=== PATIENT | female | born 1950 | race Caucasian/White ===

== ENCOUNTER 2018-12-20 08:12 | Emergency (ER) | payer OTHER, BC ==
[2018-12-20 08:19] VITALS: BP 147/83; PULSE 68; TEMP 98.8; BMI 29.2
--- NOTE | 2018-12-20 09:00 | PDOC ---
History of Present Illness - General Chief Complaint: Urinary Problem Stated Complaint: UTI SYMTOMS Time Seen by Provider: 12/20/18 08:32 - History of Present Illness Initial Comments: 12/20/18 09:01 68y/o F hx of CVA, HTN, HLD presents to the ED with 2 days of suprapubic abdominal pain, dysuria and hematuria. She describes the pain as constant steady suprapubic non- radiating pain that is 9/10 in severity. She drank some cranberry juice and water yesterday and experienced some temporary relief of her symptoms.She has had one episode of hematuria and has not taken any medications at home for pain relief. Endorses urgency, but no burning with urination.She denies any fevers, chills, nausea, vomiting, or flank pain. 12/20/18 12:35 Past History - Past Medical History Allergies/Adverse Reactions: Allergies Allergy/AdvReac Type Severity Reaction Status Date / Time No Known Allergies Allergy Verified 12/20/18 08:15 Home Medications: Ambulatory Orders Aspirin [ASA -] 81 mg PO DAILY 11/27/13 Cyclobenzaprine HCl [Flexeril -] 10 mg PO TID PRN #21 tablet 11/27/13 Metoprolol Succinate [Toprol XL -] 100 mg PO DAILY 11/27/13 Naproxen [Naprosyn -] 500 mg PO BID PRN #14 tablet 11/27/13 Pravastatin Sodium [Pravachol -] 40 mg PO DAILY 11/27/13 Cephalexin [Keflex] 500 mg PO BID 7 Days #14 capsule 12/20/18 CVA: No COPD: No CHF: No - Immunization History Immunization Up to Date: Yes - Suicide/Smoking/Psychosocial Hx Smoking History: Never smoked Information on smoking cessation initiated: No Hx Alcohol Use: No Drug/Substance Use Hx: No Review of Systems - Review of Systems Constitutional: No: Chills, Fever HEENTM: No: Blurred Vision Respiratory: No: Cough, Shortness of Breath Cardiac (ROS): No: Chest Pain ABD/GI: No: Diarrhea, Nausea : Yes: Symptoms Reported, Burning Musculoskeletal: Yes: Muscle Pain. No: Back Pain Integumentary: No: Bruising, Change in Color Neurological: No: Headache *Physical Exam - Vital Signs Last Vital Signs Temp Pulse Resp BP Pulse Ox 98.8 F 68 17 147/83 100 12/20/18 08:16 12/20/18 08:16 12/20/18 08:16 12/20/18 08:16 12/20/18 08:16 - Physical Exam General Appearance: Yes: Nourished, Appropriately Dressed. No: Apparent Distress HEENT: positive: Normal Voice. negative: Scleral Icterus (R), Scleral Icterus ( L) Neck: positive: Trachea midline. negative: Tender Respiratory/Chest: positive: Lungs Clear, Normal Breath Sounds. negative: Chest Tender, Respiratory Distress Cardiovascular: positive: Regular Rhythm, Regular Rate, S1, S2. negative: JVD Gastrointestinal/Abdominal: positive: Normal Bowel Sounds, Soft, Protuberent. negative: Tender, Distended, Guarding, Rebound, Tenderness Musculoskeletal: positive: Normal Inspection. negative: CVA Tenderness Extremity: positive: Normal Capillary Refill, Normal Inspection, Normal Range of Motion, Other (1+ edema of bilateral lower extremities) Integumentary: positive: Normal Color, Dry, Warm. negative: Cyanotic Neurologic: positive: Fully Oriented, Alert, Normal Mood/Affect, Normal Response ED Treatment Course - LABORATORY CBC & Chemistry Diagram: 12/20/18 09:15 12/20/18 09:15 Medical Decision Making - Medical Decision Making 12/20/18 10:15 68y/o F hx of CVA, HTN, HLD presents to the ED with 2 days of suprapubic abdominal pain, dysuria and hematuria. cbc, cmp, ua, urine culture Meds; 975 mg PO for pain 12/20/18 12:36 Patients pain improved with tylenol, cbc and cmp unremarkable UA remarkable for protein 3+, leukocyte esterase 3+ and 3+ blood. Pt sent home with prescription for oral antibiotics (Cephalexin 500mg po bid for 7 days) UA equally remarkable for proteinuria 3+. pt counseled on the importance of following up on this result with her primary care doctor. *DC/Admit/Observation/Transfer Diagnosis at time of Disposition: UTI (urinary tract infection) Qualifiers: Urinary tract infection type: site unspecified Hematuria presence: with hematuria Qualified Code(s): N39.0 - Urinary tract infection, site not specified - Discharge Dispostion Disposition: HOME Condition at time of disposition: Stable - Prescriptions Prescriptions: Cephalexin [Keflex] 500 mg PO BID 7 Days #14 capsule - Referrals Referrals: Zay Gonzales MD [Primary Care Provider] - - Patient Instructions Printed Discharge Instructions: Urinary Tract Infection Additional Instructions: UTI Discharge: you were prescribed antibiotics, take them exactly as your caregiver instructs you. Finish the medication even if you feel better! Drink enough water and fluids to keep your urine clear or pale yellow. Avoid caffeine , tea, and carbonated beverages - these can irritate your bladder. Empty your bladder often. Avoid holding urine for long periods of time. Empty your bladder before and after sexual intercourse. After a bowel movement, women should cleanse from front to back. Use each tissue only once. Follow up with your primary care provider within the next week. SEEK MEDICAL CARE IF: You have back pain. You develop a fever. Your symptoms do not begin to resolve within 3 days. SEEK IMMEDIATE MEDICAL CARE IF: You have severe back pain or lower abdominal pain. You develop chills. You have nausea or vomiting. You have continued burning or discomfort with urination. - Post Discharge Activity
[2018-12-20 09:43] LABS: BASO % 0.4 % (0-2.0); EOS % 1.4 % (0-4.5); HEMATOCRIT 35.9 % (32.4-45.2); HEMOGLOBIN 12.1 GM/dL (10.7-15.3); LYMPH % 16.4 % (8-40); MCHC 33.7 g/dl (32.0-36.0); MEAN CELL VOLUME 89.1 fl (80-96); MONO % 6.2 % (3.8-10.2); NEUT % 75.6 % (42.8-82.8); PLATELET COUNT 227 K/MM3 (134-434); RBC 4.03 M/mm3 (3.60-5.2); RDW 13.6 % (11.6-15.6); WHITE BLOOD COUNT 10.1 K/mm3 (4.0-10.0)
[2018-12-20] MEDS ORDERED: ACETAMINOPHEN 500 MG TABLET (FP) PO ONE (09:50)
[2018-12-20 09:59] LABS: ALBUMIN 3.6 g/dl (3.4-5.0); BILIRUBIN,TOTAL 0.5 mg/dL (0.2-1); BLOOD UREA NITROGEN 27.3 mg/dL (7-18); CALCIUM 9.5 mg/dL (8.5-10.1); POTASSIUM 3.9 mmol/L (3.5-5.1); TOT PROT 7.4 g/dl (6.4-8.2)
--- NOTE | 2018-12-20 10:49 | PDOC ---
Attending Attestation - Resident Resident Name: Dewey Garcia - ED Attending Attestation I have performed the following: I have examined & evaluated the patient, The case was reviewed & discussed with the resident, I agree w/resident's findings & plan, Exceptions are as noted - HPI HPI: 12/20/18 10:49 68 F with h/o HTN, HLD, CVA presenting to ED with 2 days of suprapubic pain. Pt endorses burning with urination and an episode of hematuria yesterday. Denies flank pain. Denies F/C. Denies N/V/D. - Physicial Exam PE: 12/20/18 10:50 "GENERAL: Awake, alert, and fully oriented, in no acute distress. HEAD: No signs of trauma EYES: PERRLA, EOMI, sclera anicteric, conjunctiva clear ENT: Auricles normal inspection, hearing grossly normal, nares patent, oropharynx clear without exudates. Moist mucosa NECK: Nontender, no stepoffs, Normal ROM, supple, no lymphadenopathy, JVD, or masses LUNGS: Breath sounds equal, clear to auscultation bilaterally. No wheezes, and no crackles HEART: Regular rate and rhythm, normal S1 and S2, no murmurs, rubs or gallops ABDOMEN: + suprapubic TTP, normoactive bowel sounds. No guarding, no rebound. No masses EXTREMITIES: Normal range of motion, no edema. No clubbing or cyanosis. No cords, erythema, or tenderness NEUROLOGICAL: Cranial nerves II through XII intact. 5/5 strength and sensation in all extremities, Normal speech, normal gait, normal cerebellar function SKIN: Warm, Dry, normal turgor, no rashes or lesions noted. - Medical Decision Making 12/20/18 10:50 68 F with suprapubic pain and dysuria. Will evaluate for UTI. - Labs, UA - Tylenol 12/20/18 12:16 UA consistent with UTI. Will tx with keflex Labs otherwise wnl Pt is well appearing, with normal vitals. Clinically stable for DC at this time. I discussed the physical exam findings, ancillary test results and final diagnoses with the patient. I answered all of the patient's questions. The patient was satisfied with the care received and felt comfortable with the discharge plan and treatment plan. The patient agrees to follow up with the primary care physician within 24-72 hours.
[2018-12-20 12:00] LABS: URINE COLOR YELLOW
[2018-12-20 12:01] LABS: PH,URINE 7.5 (5.0-8.0); URINE APPEARANCE CLOUDY; URINE BILIRUBIN NEGATIVE (NEGATIVE); URINE GLUCOSE (UA) NEGATIVE (NEGATIVE); URINE KETONE NEGATIVE (NEGATIVE); URINE LEUK ESTERASE 3+ (NEGATIVE); URINE NITRITE NEGATIVE (NEGATIVE); URINE PROTEIN 3+ (NEGATIVE); URINE UROBILINOGEN 0.2 mg/dL (0.2-1.0)
[2018-12-20 12:23] LABS: EPI CELLS 3+ /HPF (0-5/HPF); URINE BACTERIA 1+ /hpf (NEGATIVE); URINE RBC 30-40 /hpf (0-4); URINE WBC 40-50 /hpf (0-5)
== END 2018-12-20 12:30 | disposition home or self-care (01) ==
LOC: JER 08:12
DX: N39.0 Urinary tract infection, site not specified (principal); B96.89 Other specified bacterial agents as the cause of diseases classified elsewhere; N02.9 Recurrent and persistent hematuria with unspecified morphologic changes; I10 Essential (primary) hypertension; E78.5 Hyperlipidemia, unspecified; Z86.73 Personal history of transient ischemic attack (TIA), and cerebral infarction without residual deficits
CPT/HCPCS: 36415; 80053; 81003; 85025; 87086; 87186; 99282-25

== ENCOUNTER → 2020-03-11 | Day surgery (SDC) | payer OTHER, BC ==
[2020-03-09 15:14] VITALS: BMI 27.9
[~2020-03-11] MED LIST: DEXAMETHASONE SOD PHOSPHATE 4 MG/1 ML VIAL ONE; GLYCOPYRROLATE 0.2 MG/1 ML VIAL ONE; LACTATED RINGERS SOLUTION 1,000 ML IV SCH; LIDOCAINE HCL/PF 2% SDV 5ML VIAL ONE; MIDAZOLAM HCL 2 MG/2 ML SINGLE DOSE VIAL ONE; ONDANSETRON 4 MG/2 ML VIAL IVPUSH PRN; PROMETHAZINE HCL 25 MG/1 ML VIAL IVPB PRN; PROPOFOL 20 ML ONE; SODIUM CHLORIDE 0.9% P/F 10 ML VIAL IJ ONE; ceFAZolin SODIUM 1 GM VIAL IVPB ONE; ceFAZolin SODIUM 1 GM VIAL ONE
[2020-03-11 15:13] VITALS: BP 108/67; PULSE 63; TEMP 96.8
== END | disposition home or self-care (01) ==
LOC: JASU-SURG 05:43
PROVIDERS: ATTEND Urology
PROC: 0TBB8ZX Excision of Bladder, Via Natural or Artificial Opening Endoscopic, Diagnostic (ICD-10-PCS; principal; 2020-03-11 11:00)
DX: C67.3 Malignant neoplasm of anterior wall of bladder (principal); I10 Essential (primary) hypertension; E11.9 Type 2 diabetes mellitus without complications; E78.5 Hyperlipidemia, unspecified; Z79.84 Long term (current) use of oral hypoglycemic drugs
CPT/HCPCS: 82962; 87086; 88108; 88307-TC; 94760

== ENCOUNTER 2020-07-10 04:48 | Day surgery (SDC) | payer OTHER, BC ==
[2020-07-09 10:00] VITALS: BMI 29.2
[2020-07-10] MEDS ORDERED: ceFAZolin SODIUM 1 GM VIAL IVPB ONE (14:49)
[2020-07-10] MEDS ORDERED: oxyCODONE HCL 5 MG TABLET PO PRN ×2 (16:00)
[2020-07-10] MEDS ORDERED: ONDANSETRON 4 MG/2 ML VIAL IVPUSH PRN (16:00)
[2020-07-10] MEDS ORDERED: LACTATED RINGERS SOLUTION 1,000 ML IV SCH (16:00)
[2020-07-10 16:48] VITALS: TEMP 97.8
[2020-07-10 18:09] VITALS: BP 114/57; PULSE 63
== END 2020-07-10 17:55 | disposition home or self-care (01) ==
LOC: JASU-SURG 04:48
PROVIDERS: ATTEND Urology
PROC: 0T5B8ZZ Destruction of Bladder, Via Natural or Artificial Opening Endoscopic (ICD-10-PCS; principal; 2020-07-10 13:00)
DX: C67.9 Malignant neoplasm of bladder, unspecified (principal); I10 Essential (primary) hypertension; E11.9 Type 2 diabetes mellitus without complications
CPT/HCPCS: 82962; 87086; 88108; 88307-TC

== ENCOUNTER 2021-01-10 09:10 | Observation (INO) | payer OTHER, BC ==
[2021-01-10] MEDS ORDERED: ACETAMINOPHEN 1000 MG/100 ML VIAL IVPB ONE (09:28)
[2021-01-10] MEDS ORDERED: SODIUM CHLORIDE 500 ML IV STA (09:28)
[2021-01-10] MEDS ORDERED: CEFTRIAXONE 1 GM in DEXTROSE 5%-WATER - 50 ML IVPB ONE (09:42)
[2021-01-10 10:55] LABS: EPI CELLS 32 /uL (0-25.1); HYALINE CASTS 6 /uL (0-3.1); PH,URINE 5.5 (5.0-8.0); URINE APPEARANCE CLOUDY; URINE BACTERIA >9,000 /uL (0-1359); URINE BILIRUBIN NEGATIVE (NEGATIVE); URINE COLOR DK YELLOW; URINE GLUCOSE (UA) NEGATIVE (NEGATIVE); URINE KETONE 1+ (NEGATIVE); URINE LEUK ESTERASE 2+ (NEGATIVE); URINE NITRITE POSITIVE (NEGATIVE); URINE PROTEIN 2+ (NEGATIVE); URINE RBC 22 /uL (0-23.9); URINE WBC 610 /uL (0-25.8)
[2021-01-10] MEDS ORDERED: CEFTRIAXONE 1 GM/50 ML BAG ONE (10:59)
[2021-01-10] MEDS ORDERED: ACETAMINOPHEN INJECTION 100 ML IVPB ONE (10:59)
[2021-01-10 11:24] LABS: BASO % 0.4 % (0-2.0); HEMATOCRIT 35.5 % (32.4-45.2); HEMOGLOBIN 12.2 GM/dL (10.7-15.3); LYMPH % 3.4 % (8-40); MCH 30.2 pg (25.7-33.7); MCHC 34.5 g/dl (32.0-36.0); MEAN CELL VOLUME 87.6 fl (80-96); MEAN PLT VOLUME 8.5 fl (7.5-11.1); MONO % 6.7 % (3.8-10.2); NEUT % 89.5 % (42.8-82.8); PLATELET COUNT 193 10^3/uL (134-434); RBC 4.06 M/mm3 (3.60-5.2); RDW 13.2 % (11.6-15.6); WHITE BLOOD COUNT 16.8 K/mm3 (4.0-10.0)
[2021-01-10 11:54] LABS: CALCIUM 8.3 mg/dL (8.5-10.1)
[2021-01-10 11:55] LABS: ALBUMIN 3.1 g/dl (3.4-5.0); BLOOD UREA NITROGEN 21.7 mg/dL (7-18)
[2021-01-10 11:58] LABS: CREATININE 1.1 mg/dL (0.55-1.3)
[2021-01-10 11:59] LABS: BILIRUBIN,TOTAL 1.2 mg/dL (0.2-1); TOT PROT 7.2 g/dl (6.4-8.2)
[2021-01-10 12:00] LABS: ANISOCYTOSIS 0; MACROCYTOSIS 0; PLATELET ESTIMATE NORMAL
[2021-01-10] MEDS ORDERED: ONDANSETRON 4 MG/2 ML VIAL IVPUSH PRN (15:18)
[2021-01-10 16:51] VITALS: BMI 27.4
[2021-01-10] MEDS: INSULIN SLIDING SCALE (NOVOLOG) 1 VIAL SQ SCH ×2 (17:30→21:19)
[2021-01-10] MEDS: SODIUM CHLORIDE 1,000 ML IV SCH (17:39)
[2021-01-10] MEDS: ACETAMINOPHEN 325 MG TABLET (FP) PO PRN (21:23)
[2021-01-11] MEDS: SODIUM CHLORIDE 1,000 ML IV SCH ×2 (02:09→18:02)
[2021-01-11] MEDS: ACETAMINOPHEN 325 MG TABLET (FP) PO PRN ×2 (05:48→19:00)
[2021-01-11] MEDS: INSULIN SLIDING SCALE (NOVOLOG) 1 VIAL SQ SCH ×4 (06:02→21:32)
[2021-01-11 08:18] LABS: HEMATOCRIT 31.8 % (32.4-45.2); HEMOGLOBIN 10.8 GM/dL (10.7-15.3); MCH 29.9 pg (25.7-33.7); MCHC 33.8 g/dl (32.0-36.0); MEAN CELL VOLUME 88.4 fl (80-96); MEAN PLT VOLUME 9.2 fl (7.5-11.1); PLATELET COUNT 149 10^3/uL (134-434); RDW 13.3 % (11.6-15.6); WHITE BLOOD COUNT 11.2 K/mm3 (4.0-10.0)
[2021-01-11 08:34] LABS: CALCIUM 7.5 mg/dL (8.5-10.1)
[2021-01-11 08:35] LABS: BLOOD UREA NITROGEN 22.9 mg/dL (7-18)
[2021-01-11 08:38] LABS: CREATININE 1.1 mg/dL (0.55-1.3)
[2021-01-11] MEDS ORDERED: CEFTRIAXONE 1 GM in DEXTROSE 5%-WATER - 50 ML IVPB SCH (10:00)
[2021-01-11] MEDS ORDERED: CEFTRIAXONE 2 GM in DEXTROSE 5%-WATER 100 ML IVPB SCH (10:00)
[2021-01-11] MEDS ORDERED: PATIENT'S OWN MEDICATION (NON-FORMULARY) (C,E,Zinc,Copper 11/Omega3s/Lut [Ocuvite Adult 50 PO SCH (10:00)
[2021-01-11] MEDS ORDERED: POTASSIUM CHLORIDE ORAL LIQUID 20 MEQ/15 ML PO ONE (10:30)
[2021-01-11] MEDS ORDERED: DEXTROSE 5%-WATER 100 ML IVPB ONE (10:49)
[2021-01-11] MEDS: LISINOPRIL 20 MG TABLET PO SCH (10:52)
[2021-01-11] MEDS: MULTIVITAMINS (DAILY MVI) TABLET (FP) PO SCH (10:52)
[2021-01-11] MEDS: amLODIPine BESYLATE 5 MG TABLET (FP) PO SCH (10:53)
[2021-01-11] MEDS: CEFTRIAXONE 2 GM in DEXTROSE 5%-WATER 100 ML IVPB SCH (10:53)
[2021-01-11] MEDS: ASPIRIN 81 MG CHEWABLE TABLETS PO SCH (10:53)
[2021-01-11] MEDS ORDERED: INSULIN (NOVOLOG) ASPART 100 UNITS/ML 10ML VIAL ONE ×2 (17:38→20:44)
[2021-01-12] MEDS: ACETAMINOPHEN 325 MG TABLET (FP) PO PRN (05:55)
[2021-01-12] MEDS: INSULIN SLIDING SCALE (NOVOLOG) 1 VIAL SQ SCH ×4 (06:08→22:40)
[2021-01-12 08:09] LABS: BASO % 0.4 % (0-2.0); HEMATOCRIT 30.7 % (32.4-45.2); HEMOGLOBIN 10.4 GM/dL (10.7-15.3); LYMPH % 12.5 % (8-40); MCHC 33.8 g/dl (32.0-36.0); MEAN CELL VOLUME 88.7 fl (80-96); MEAN PLT VOLUME 8.8 fl (7.5-11.1); MONO % 9.5 % (3.8-10.2); NEUT % 76.6 % (42.8-82.8); PLATELET COUNT 165 10^3/uL (134-434); RBC 3.46 M/mm3 (3.60-5.2); RDW 13.9 % (11.6-15.6); WHITE BLOOD COUNT 7.3 K/mm3 (4.0-10.0)
[2021-01-12 08:32] LABS: CALCIUM 7.7 mg/dL (8.5-10.1)
[2021-01-12 08:33] LABS: BLOOD UREA NITROGEN 15.5 mg/dL (7-18)
[2021-01-12 08:36] LABS: CREATININE 0.8 mg/dL (0.55-1.3)
[2021-01-12] MEDS ORDERED: DEXTROSE 5%-WATER 100 ML IVPB ONE (09:54)
[2021-01-12] MEDS: CEFTRIAXONE 2 GM in DEXTROSE 5%-WATER 100 ML IVPB SCH (09:56)
[2021-01-12] MEDS: MULTIVITAMINS (DAILY MVI) TABLET (FP) PO SCH (09:57)
[2021-01-12] MEDS: amLODIPine BESYLATE 5 MG TABLET (FP) PO SCH (09:57)
[2021-01-12] MEDS: LISINOPRIL 20 MG TABLET PO SCH (09:57)
[2021-01-12] MEDS: ASPIRIN 81 MG CHEWABLE TABLETS PO SCH (09:57)
[2021-01-12] MEDS ORDERED: POTASSIUM CHLORIDE ORAL LIQUID 20 MEQ/15 ML PO ONE (11:00)
[2021-01-12] MEDS: SODIUM CHLORIDE 1,000 ML IV SCH (11:06)
[2021-01-13] MEDS: ACETAMINOPHEN 325 MG TABLET (FP) PO PRN (02:41)
[2021-01-13] MEDS: INSULIN SLIDING SCALE (NOVOLOG) 1 VIAL SQ SCH ×3 (06:48→17:17)
[2021-01-13 07:07] LABS: HEMATOCRIT 29.4 % (32.4-45.2); MCHC 34.1 g/dl (32.0-36.0); MEAN CELL VOLUME 88.1 fl (80-96); MEAN PLT VOLUME 8.6 fl (7.5-11.1); PLATELET COUNT 162 10^3/uL (134-434); RBC 3.33 M/mm3 (3.60-5.2); RDW 13.8 % (11.6-15.6); WHITE BLOOD COUNT 6.6 K/mm3 (4.0-10.0)
[2021-01-13 08:18] LABS: CALCIUM 7.5 mg/dL (8.5-10.1)
[2021-01-13 08:19] LABS: BLOOD UREA NITROGEN 14.6 mg/dL (7-18)
[2021-01-13 08:21] LABS: CREATININE 0.7 mg/dL (0.55-1.3)
[2021-01-13] MEDS ORDERED: DEXTROSE 5%-WATER 100 ML IVPB ONE (09:20)
[2021-01-13] MEDS: ASPIRIN 81 MG CHEWABLE TABLETS PO SCH (09:27)
[2021-01-13] MEDS: CEFTRIAXONE 2 GM in DEXTROSE 5%-WATER 100 ML IVPB SCH (09:27)
[2021-01-13] MEDS: MULTIVITAMINS (DAILY MVI) TABLET (FP) PO SCH (09:27)
[2021-01-13 09:38] LABS: ANISOCYTOSIS 0; MACROCYTOSIS 0; PLATELET ESTIMATE NORMAL
[2021-01-13] MEDS: amLODIPine BESYLATE 5 MG TABLET (FP) PO SCH (09:58)
[2021-01-13] MEDS ORDERED: INSULIN (NOVOLOG) ASPART 100 UNITS/ML 10ML VIAL ONE (12:01)
[2021-01-13] MEDS: SODIUM CHLORIDE 1,000 ML IV SCH (12:17)
[2021-01-13 15:53] VITALS: BP 129/75; PULSE 68; TEMP 98.4
== END 2021-01-13 17:24 | disposition home or self-care (01) ==
LOC: JER 09:10 → INTOOBSV 11:23 → JERBED 11:23 → UNDOADMOB 11:23 → JERBED 14:21 → J8W 14:21
PROVIDERS: ADMIT Internal Medicine; ATTEND Family Medicine
PROC: 3E03329 Introduction of Other Anti-infective into Peripheral Vein, Percutaneous Approach (ICD-10-PCS; principal; 2021-01-11)
PROC: 3E033NZ Introduction of Analgesics, Hypnotics, Sedatives into Peripheral Vein, Percutaneous Approach (ICD-10-PCS; 2021-01-11)
PROC: 3E033GC Introduction of Other Therapeutic Substance into Peripheral Vein, Percutaneous Approach (ICD-10-PCS; 2021-01-11)
DX: N12 Tubulo-interstitial nephritis, not specified as acute or chronic (principal); N39.0 Urinary tract infection, site not specified; R78.81 Bacteremia; E11.9 Type 2 diabetes mellitus without complications; C67.9 Malignant neoplasm of bladder, unspecified; I10 Essential (primary) hypertension; E78.5 Hyperlipidemia, unspecified; N95.9 Unspecified menopausal and perimenopausal disorder
CPT/HCPCS: 36415; 71046-TC-FY; 74176-TC; 80048; 80053; 81003; 82272; 82962; 85025; 85027; 87040; 87086; 87186; 93005; 93010; 96365; 96375; 99285-25; C9803; G0378; J0131; U0003; U0005

== ENCOUNTER 2021-01-24 07:13 | Inpatient (IN) | payer OTHER, BC ==
[2021-01-24] MEDS ORDERED: SODIUM CHLORIDE 500 ML IV STA ×2 (08:17→09:45)
[2021-01-24] MEDS ORDERED: ONDANSETRON 4 MG/2 ML VIAL IVPUSH ONE (08:18)
[2021-01-24] MEDS ORDERED: ONDANSETRON 4 MG/2 ML VIAL ONE (08:23)
[2021-01-24 09:22] LABS: EPI CELLS 25 /uL (0-25.1); HYALINE CASTS 5 /uL (0-3.1); PH,URINE 5.5 (5.0-8.0); URINE APPEARANCE CLEAR; URINE BACTERIA 69 /uL (0-1359); URINE BILIRUBIN NEGATIVE (NEGATIVE); URINE COLOR DK YELLOW; URINE GLUCOSE (UA) NEGATIVE (NEGATIVE); URINE KETONE 1+ (NEGATIVE); URINE LEUK ESTERASE 1+ (NEGATIVE); URINE NITRITE NEGATIVE (NEGATIVE); URINE PROTEIN 1+ (NEGATIVE); URINE RBC 30 /uL (0-23.9); URINE WBC 56 /uL (0-25.8)
[2021-01-24 09:28] LABS: ALBUMIN 2.7 g/dl (3.4-5.0); CO2 25 mmol/L (21-32)
[2021-01-24 09:29] LABS: GLUCOSE,RANDOM 123 mg/dL (74-106)
[2021-01-24 09:31] LABS: SGPT/ALT 159 U/L (13-61)
[2021-01-24 09:32] LABS: SGOT/AST 171 U/L (15-37)
[2021-01-24 09:33] LABS: BILIRUBIN,TOTAL 1.3 mg/dL (0.2-1); TOT PROT 7.9 g/dl (6.4-8.2)
[2021-01-24 09:37] LABS: ALK PHOS 176 U/L (45-117); ANION GAP 8 MMOL/L (8-16); BLOOD UREA NITROGEN 23.3 mg/dL (7-18); CALCIUM 8.9 mg/dL (8.5-10.1); CHLORIDE 97 mmol/L (98-107); CREATININE 1.5 mg/dL (0.55-1.3); SODIUM 130 mmol/L (136-145)
[2021-01-24 09:40] LABS: HEMATOCRIT 32.9 % (32.4-45.2); HEMOGLOBIN 11.4 GM/dL (10.7-15.3); MCH 30.3 pg (25.7-33.7); MCHC 34.5 g/dl (32.0-36.0); MEAN CELL VOLUME 87.7 fl (80-96); MEAN PLT VOLUME 8.5 fl (7.5-11.1); PLATELET COUNT 337 10^3/uL (134-434); RBC 3.75 M/mm3 (3.60-5.2); RDW 14.2 % (11.6-15.6)
[2021-01-24 10:00] LABS: WHITE BLOOD COUNT 19.6 K/mm3 (4.0-10.0)
[2021-01-24] MEDS ORDERED: CEFTRIAXONE 1,000 MG in DEXTROSE 5%-WATER - 50 ML IVPB ONE (11:31)
[2021-01-24] MEDS ORDERED: CEFTRIAXONE 1 GM/50 ML BAG ONE (11:37)
[2021-01-24 11:41] LABS: BLOOD UREA NITROGEN 21.3 mg/dL (7-18); CALCIUM 8.3 mg/dL (8.5-10.1)
[2021-01-24 11:42] LABS: ALBUMIN 2.7 g/dl (3.4-5.0)
[2021-01-24 11:44] LABS: CREATININE 1.3 mg/dL (0.55-1.3)
[2021-01-24 11:47] LABS: BILIRUBIN,TOTAL 0.6 mg/dL (0.2-1); TOT PROT 6.7 g/dl (6.4-8.2)
[2021-01-24 13:34] LABS: ANISOCYTOSIS 1+; MACROCYTOSIS 1+; PLATELET ESTIMATE NORMAL
[2021-01-24 15:35] VITALS: BMI 28.3
[2021-01-24] MEDS ORDERED: PIPERACILLIN/TAZOBACTAM 3.375 GM VIAL IVPB ONE (16:37)
[2021-01-24] MEDS ORDERED: DEXTROSE 5%-WATER - 50 ML IVPB ONE (16:37)
[2021-01-24] MEDS: SODIUM CHLORIDE 1,000 ML IV SCH (16:53)
[2021-01-24] MEDS: PIPERACILLIN/TAZOB 3.375 GM 3.375 GM in DEXTROSE 5%-WATER - 50 ML IVPB SCH (18:14)
[2021-01-25] MEDS ORDERED: PIPERACILLIN/TAZOBACTAM 3.375 GM VIAL IVPB ONE ×3 (01:18→17:02)
[2021-01-25] MEDS ORDERED: DEXTROSE 5%-WATER - 50 ML IVPB ONE ×3 (01:18→17:02)
[2021-01-25] MEDS: PIPERACILLIN/TAZOB 3.375 GM 3.375 GM in DEXTROSE 5%-WATER - 50 ML IVPB SCH ×3 (01:25→17:09)
[2021-01-25 09:36] LABS: HEMOGLOBIN 10.2 GM/dL (10.7-15.3); MCH 30.1 pg (25.7-33.7); MCHC 33.9 g/dl (32.0-36.0); MEAN CELL VOLUME 88.8 fl (80-96); MEAN PLT VOLUME 7.8 fl (7.5-11.1); PLATELET COUNT 291 10^3/uL (134-434); RBC 3.38 M/mm3 (3.60-5.2); WHITE BLOOD COUNT 6.7 K/mm3 (4.0-10.0)
[2021-01-25 10:02] LABS: ALBUMIN 2.4 g/dl (3.4-5.0); BILIRUBIN,TOTAL 0.5 mg/dL (0.2-1); BLOOD UREA NITROGEN 18.7 mg/dL (7-18); CALCIUM 8.7 mg/dL (8.5-10.1)
[2021-01-25 10:03] LABS: TOT PROT 6.3 g/dl (6.4-8.2)
[2021-01-25 10:05] LABS: CREATININE 1.1 mg/dL (0.55-1.3)
[2021-01-25] MEDS: PANTOPRAZOLE 40 MG TABLET PO SCH (10:44)
[2021-01-25] MEDS ORDERED: POLYETHYLENE GLYCOL (HEALTHYLAX) 3350 17 GM PACKET PO ONE (14:40)
[2021-01-25] MEDS: SODIUM CHLORIDE 1,000 ML IV SCH (17:09)
[2021-01-26] MEDS ORDERED: DEXTROSE 5%-WATER - 50 ML IVPB ONE ×3 (02:34→16:12)
[2021-01-26] MEDS ORDERED: PIPERACILLIN/TAZOBACTAM 3.375 GM VIAL IVPB ONE ×4 (02:34→16:12)
[2021-01-26] MEDS: PIPERACILLIN/TAZOB 3.375 GM 3.375 GM in DEXTROSE 5%-WATER - 50 ML IVPB SCH ×3 (03:08→18:03)
[2021-01-26] MEDS: SODIUM CHLORIDE 1,000 ML IV SCH ×2 (04:52→18:03)
[2021-01-26 09:27] LABS: BASO % 1.1 % (0-2.0); EOS % 5.6 % (0-4.5); HEMATOCRIT 32.6 % (32.4-45.2); LYMPH % 28.5 % (8-40); MCHC 33.8 g/dl (32.0-36.0); MEAN CELL VOLUME 88.8 fl (80-96); MONO % 8.5 % (3.8-10.2); NEUT % 56.3 % (42.8-82.8); PLATELET COUNT 350 10^3/uL (134-434); RBC 3.67 M/mm3 (3.60-5.2); RDW 14.3 % (11.6-15.6); RETICULOCYTES 0.66 % (0.5-1.5)
[2021-01-26] MEDS: PANTOPRAZOLE 40 MG TABLET PO SCH (09:34)
[2021-01-26 09:55] LABS: ALBUMIN 2.7 g/dl (3.4-5.0); BLOOD UREA NITROGEN 14.1 mg/dL (7-18)
[2021-01-26 09:58] LABS: BILIRUBIN,TOTAL 0.5 mg/dL (0.2-1); TOT PROT 7.2 g/dl (6.4-8.2)
[2021-01-27] MEDS: SODIUM CHLORIDE 1,000 ML IV SCH ×2 (06:31→20:26)
[2021-01-27 08:56] LABS: BASO % 1.3 % (0-2.0); EOS % 4.7 % (0-4.5); HEMATOCRIT 31.1 % (32.4-45.2); HEMOGLOBIN 10.6 GM/dL (10.7-15.3); LYMPH % 38.7 % (8-40); MCHC 34.2 g/dl (32.0-36.0); MEAN CELL VOLUME 87.8 fl (80-96); MEAN PLT VOLUME 7.6 fl (7.5-11.1); MONO % 8.7 % (3.8-10.2); NEUT % 46.6 % (42.8-82.8); PLATELET COUNT 317 10^3/uL (134-434); RBC 3.54 M/mm3 (3.60-5.2); RDW 14.2 % (11.6-15.6); WHITE BLOOD COUNT 4.9 K/mm3 (4.0-10.0)
[2021-01-27 09:25] LABS: CALCIUM 8.7 mg/dL (8.5-10.1)
[2021-01-27 09:26] LABS: ALBUMIN 2.6 g/dl (3.4-5.0); BLOOD UREA NITROGEN 12.6 mg/dL (7-18)
[2021-01-27 09:29] LABS: CREATININE 0.8 mg/dL (0.55-1.3)
[2021-01-27 09:30] LABS: BILIRUBIN,TOTAL 0.5 mg/dL (0.2-1); TOT PROT 6.7 g/dl (6.4-8.2)
[2021-01-27] MEDS: PANTOPRAZOLE 40 MG TABLET PO SCH (11:38)
[2021-01-28 09:08] LABS: HEMATOCRIT 29.5 % (32.4-45.2); HEMOGLOBIN 10.1 GM/dL (10.7-15.3); MCH 30.1 pg (25.7-33.7); MCHC 34.2 g/dl (32.0-36.0); MEAN PLT VOLUME 7.5 fl (7.5-11.1); PLATELET COUNT 344 10^3/uL (134-434); RBC 3.35 M/mm3 (3.60-5.2); RDW 13.9 % (11.6-15.6); WHITE BLOOD COUNT 4.6 K/mm3 (4.0-10.0)
[2021-01-28 09:55] LABS: CALCIUM 8.6 mg/dL (8.5-10.1)
[2021-01-28 09:56] LABS: ALBUMIN 2.6 g/dl (3.4-5.0); BLOOD UREA NITROGEN 14.6 mg/dL (7-18)
[2021-01-28 09:59] LABS: CREATININE 0.7 mg/dL (0.55-1.3)
[2021-01-28] MEDS ORDERED: POLYETHYLENE GLYCOL (HEALTHYLAX) 3350 17 GM PACKET PO SCH (10:00)
[2021-01-28 10:01] LABS: BILIRUBIN,TOTAL 0.5 mg/dL (0.2-1); TOT PROT 6.7 g/dl (6.4-8.2)
[2021-01-28] MEDS: PANTOPRAZOLE 40 MG TABLET PO SCH (10:17)
[2021-01-28] MEDS: SODIUM CHLORIDE 1,000 ML IV SCH (10:17)
[2021-01-28 12:23] VITALS: BP 130/80; PULSE 80; TEMP 98.1
== END 2021-01-28 16:26 | disposition home or self-care (01) | DRG 690 ==
LOC: JER 07:13 → JERBED 13:50 → J5S 14:50
PROVIDERS: ADMIT Family Medicine; ATTEND Family Medicine
DX: N39.0 Urinary tract infection, site not specified (principal); R78.81 Bacteremia; I10 Essential (primary) hypertension; E78.5 Hyperlipidemia, unspecified; E11.9 Type 2 diabetes mellitus without complications; R10.32 Left lower quadrant pain; R94.5 Abnormal results of liver function studies; K64.9 Unspecified hemorrhoids; D72.829 Elevated white blood cell count, unspecified; K76.0 Fatty (change of) liver, not elsewhere classified; K71.6 Toxic liver disease with hepatitis, not elsewhere classified; T36.8X5A Adverse effect of other systemic antibiotics, initial encounter; Z85.51 Personal history of malignant neoplasm of bladder; Z86.010 Personal history of colon polyps; Z86.73 Personal history of transient ischemic attack (TIA), and cerebral infarction without residual deficits
CPT/HCPCS: 36415; 74177-TC; 76700-TC; 80053; 81003; 82550; 82977; 83010; 83516; 84484; 85025; 85027; 85045; 86706; 86803; 87040; 87086; 87340; 87517; 93005; 93010; 99285-25; C9803; U0003; U0005

== ENCOUNTER 2021-02-22 04:50 | Day surgery (SDC) | payer OTHER, BC ==
[2021-02-18 15:49] VITALS: BMI 27.6
[2021-02-22 10:37] LABS: INR 0.98 (0.83-1.09); PROTHROMBIN TIME (PATIENT) 11.5 SEC (9.7-13.0)
[2021-02-22 17:28] VITALS: TEMP 98.4
[2021-02-22 17:32] VITALS: BP 133/64; PULSE 57
== END 2021-02-22 16:15 | disposition home or self-care (01) ==
LOC: JRADIR 04:50
PROVIDERS: ATTEND Urology
PROC: 0TB03ZX Excision of Right Kidney, Percutaneous Approach, Diagnostic (ICD-10-PCS; principal; 2021-02-22)
DX: N28.1 Cyst of kidney, acquired (principal)
CPT/HCPCS: 36415; 50390; 74425-TC-FY; 85610; 87070; 87075; 87102; 87116; 87205; 87206; 87210; 87899; 88108; 88305-TC

== ENCOUNTER 2021-08-17 04:25 | Inpatient (IN) | payer OTHER, BC ==
[2021-08-12 13:05] VITALS: BMI 28.6
[2021-08-17] MEDS ORDERED: FENTANYL CITRATE/PF 50 MCG/ML VIAL ONE (11:18)
[2021-08-17] MEDS ORDERED: SUCCINYLCHOLINE CHLORIDE 200 MG/10 ML SYRINGE ONE (11:33)
[2021-08-17] MEDS ORDERED: ceFAZolin SODIUM 1 GM VIAL IVPB ONE (11:38)
[2021-08-17] MEDS ORDERED: PROPOFOL 20 ML ONE ×2 (11:46)
[2021-08-17 13:28] LABS: ARTERIAL BLD GAS O2 SATURATION 95.2 % (95-98); ARTERIAL BLOOD GAS BASE EXCESS 1.6 mmol/L (-2-2); ARTERIAL BLOOD GAS PO2 79.8 mmHg (80-100); ARTERIAL BLOOD GAS pH 7.359 (7.350-7.450)
[2021-08-17 13:29] LABS: ALLENS TEST POSITIVE
[2021-08-17 13:59] LABS: BASO % 0.7 % (0-2.0); EOS % 1.6 % (0-4.5); HEMATOCRIT 34.5 % (32.4-45.2); HEMOGLOBIN 11.8 GM/dL (10.7-15.3); LYMPH % 21.5 % (8-40); MCH 30.7 pg (25.7-33.7); MCHC 34.1 g/dl (32.0-36.0); MEAN CELL VOLUME 89.9 fl (80-96); MEAN PLT VOLUME 9.2 fl (7.5-11.1); MONO % 4.8 % (3.8-10.2); NEUT % 71.4 % (42.8-82.8); PLATELET COUNT 193 10^3/uL (134-434); RBC 3.84 M/mm3 (3.60-5.2); RDW 13.2 % (11.6-15.6); WHITE BLOOD COUNT 7.9 K/mm3 (4.0-10.0)
[2021-08-17 14:43] LABS: ALBUMIN 3.2 g/dl (3.4-5.0); BILIRUBIN,TOTAL 0.3 mg/dL (0.2-1); BLOOD UREA NITROGEN 27.2 mg/dL (7-18); TOT PROT 6.7 g/dl (6.4-8.2)
[2021-08-17] MEDS ORDERED: POTASSIUM CHLORIDE TABS 10 MEQ TABLET.ER (FP) PO ONE (17:04)
[2021-08-17] MEDS: SODIUM CHLORIDE 1,000 ML IV SCH (17:30)
[2021-08-17] MEDS: CHLORHEXIDINE GLUCONATE 4% CLEANSER FOR DECOLONIZATION TP SCH (21:29)
[2021-08-17] MEDS: MUPIROCIN 2% TOPICAL OINTMENT FOR DECOLONIZATION NS SCH (21:29)
[2021-08-18 07:22] LABS: ALBUMIN 2.8 g/dl (3.4-5.0); BLOOD UREA NITROGEN 23.9 mg/dL (7-18); CALCIUM 8.5 mg/dL (8.5-10.1); MAGNESIUM 1.5 mg/dL (1.8-2.4)
[2021-08-18 07:25] LABS: CREATININE 0.8 mg/dL (0.55-1.3); PHOSPHOROUS 3.7 mg/dL (2.5-4.9)
[2021-08-18 07:26] LABS: BILIRUBIN,TOTAL 0.4 mg/dL (0.2-1); TOT PROT 5.7 g/dl (6.4-8.2)
[2021-08-18 07:44] LABS: BASO % 0.6 % (0-2.0); EOS % 2.9 % (0-4.5); HEMATOCRIT 32.3 % (32.4-45.2); HEMOGLOBIN 10.9 GM/dL (10.7-15.3); MCH 30.4 pg (25.7-33.7); MCHC 33.8 g/dl (32.0-36.0); MEAN CELL VOLUME 89.9 fl (80-96); MEAN PLT VOLUME 8.8 fl (7.5-11.1); MONO % 7.6 % (3.8-10.2); NEUT % 67.9 % (42.8-82.8); PLATELET COUNT 181 10^3/uL (134-434); RBC 3.59 M/mm3 (3.60-5.2); RDW 13.6 % (11.6-15.6); WHITE BLOOD COUNT 7.3 K/mm3 (4.0-10.0)
[2021-08-18] MEDS: MUPIROCIN 2% TOPICAL OINTMENT FOR DECOLONIZATION NS SCH ×2 (10:55→21:15)
[2021-08-18] MEDS: SODIUM CHLORIDE 1,000 ML IV SCH (21:15)
[2021-08-18] MEDS: CHLORHEXIDINE GLUCONATE 4% CLEANSER FOR DECOLONIZATION TP SCH (21:15)
[2021-08-19 06:06] VITALS: PULSE 63
[2021-08-19 07:35] LABS: HEMATOCRIT 31.2 % (32.4-45.2); HEMOGLOBIN 10.6 GM/dL (10.7-15.3); MCH 30.4 pg (25.7-33.7); MCHC 33.9 g/dl (32.0-36.0); MEAN CELL VOLUME 89.9 fl (80-96); MEAN PLT VOLUME 8.7 fl (7.5-11.1); PLATELET COUNT 174 10^3/uL (134-434); RBC 3.47 M/mm3 (3.60-5.2); RDW 13.2 % (11.6-15.6); WHITE BLOOD COUNT 6.3 K/mm3 (4.0-10.0)
[2021-08-19 08:13] LABS: CALCIUM 8.5 mg/dL (8.5-10.1)
[2021-08-19 08:15] LABS: ALBUMIN 2.6 g/dl (3.4-5.0); MAGNESIUM 1.7 mg/dL (1.8-2.4)
[2021-08-19 08:16] LABS: CREATININE 0.7 mg/dL (0.55-1.3); PHOSPHOROUS 2.4 mg/dL (2.5-4.9)
[2021-08-19 08:18] LABS: BILIRUBIN,TOTAL 0.6 mg/dL (0.2-1); TOT PROT 5.7 g/dl (6.4-8.2)
[2021-08-19 09:46] VITALS: TEMP 98.6
[2021-08-19] MEDS ORDERED: ASPIRIN COATED 81 MG TABLET.EC PO SCH (10:00)
[2021-08-19 10:28] VITALS: BP 139/68
== END 2021-08-19 11:30 | disposition home or self-care (01) | DRG 988 ==
LOC: JASU-SURG 04:25 → J2C 12:23 → JICU 14:49
PROVIDERS: ADMIT Urology; ATTEND Family Medicine
PROC: 0TBB8ZX Excision of Bladder, Via Natural or Artificial Opening Endoscopic, Diagnostic (ICD-10-PCS; principal; 2021-08-17 10:00)
PROC: 5A12012 Performance of Cardiac Output, Single, Manual (ICD-10-PCS; 2021-08-19)
DX: I97.121 Postprocedural cardiac arrest following other surgery (principal); J98.11 Atelectasis; E11.9 Type 2 diabetes mellitus without complications; I10 Essential (primary) hypertension; E78.5 Hyperlipidemia, unspecified; C67.9 Malignant neoplasm of bladder, unspecified; R00.1 Bradycardia, unspecified; Y83.9 Surgical procedure, unspecified as the cause of abnormal reaction of the patient, or of later complication, without mention of misadventure at the time of the procedure
CPT/HCPCS: 36415; 36600; 71045-TC-FY; 80053; 82803; 82962; 83735; 84100; 84484; 85025; 85027; 87040; 87086; 88108; 93005; 93010; 93306-TC; 93880-TC; 94760

== ENCOUNTER → 2022-02-04 | Day surgery (SDC) | payer OTHER, BC ==
[2022-02-03 08:55] VITALS: BMI 29.3
[~2022-02-04] MED LIST changes: +BUPIVACAINE HCL/PF 0.5% (5MG/ML) 10 ML VIAL ONE; -GLYCOPYRROLATE 0.2 MG/1 ML VIAL ONE; -LIDOCAINE HCL/PF 2% SDV 5ML VIAL ONE; +ONDANSETRON 4 MG/2 ML VIAL ONE; -PROMETHAZINE HCL 25 MG/1 ML VIAL IVPB PRN; -PROPOFOL 20 ML ONE; -SODIUM CHLORIDE 0.9% P/F 10 ML VIAL IJ ONE; +oxyCODONE HCL 5 MG TABLET PO PRN
[2022-02-05 02:17] VITALS: BP 136/75; PULSE 64; RESP 17; TEMP 98.2
== END | disposition home or self-care (01) ==
LOC: JASUSAT 04:16 → JASU-SURG 04:16
PROVIDERS: ATTEND Urology
PROC: 0T5B8ZZ Destruction of Bladder, Via Natural or Artificial Opening Endoscopic (ICD-10-PCS; principal; 2022-02-04 12:00)
DX: C67.9 Malignant neoplasm of bladder, unspecified (principal)
CPT/HCPCS: 82962; 87086; 88307-TC; 94760

== ENCOUNTER 2022-05-17 04:03 | Day surgery (SDC) | payer OTHER, BC ==
[2022-05-16 08:56] VITALS: BMI 29.2
[~2022-05-17 04:03] MED LIST changes: -BUPIVACAINE HCL/PF 0.5% (5MG/ML) 10 ML VIAL ONE; -DEXAMETHASONE SOD PHOSPHATE 4 MG/1 ML VIAL ONE; -LACTATED RINGERS SOLUTION 1,000 ML IV SCH; -MIDAZOLAM HCL 2 MG/2 ML SINGLE DOSE VIAL ONE; -ONDANSETRON 4 MG/2 ML VIAL IVPUSH PRN; -ONDANSETRON 4 MG/2 ML VIAL ONE; -ceFAZolin SODIUM 1 GM VIAL ONE; -oxyCODONE HCL 5 MG TABLET PO PRN
[2022-05-17] MEDS ORDERED: BUPIVACAINE HCL/PF 0.5% (5MG/ML) 10 ML VIAL ONE (12:01)
[2022-05-17] MEDS ORDERED: ceFAZolin SODIUM 1 GM VIAL IVPB ONE (12:20)
[2022-05-17] MEDS ORDERED: ePHEDrine SULFATE 50 MG/1 ML AMPULE ONE (12:25)
[2022-05-17] MEDS ORDERED: ONDANSETRON 4 MG/2 ML VIAL ONE (12:27)
[2022-05-17] MEDS ORDERED: MIDAZOLAM HCL 2 MG/2 ML SINGLE DOSE VIAL ONE (12:28)
[2022-05-17] MEDS ORDERED: PROPOFOL 20 ML ONE (12:30)
[2022-05-17] MEDS ORDERED: oxyCODONE HCL 5 MG TABLET PO PRN (12:54)
[2022-05-17] MEDS ORDERED: ONDANSETRON 4 MG/2 ML VIAL IVPUSH PRN (12:54)
[2022-05-17] MEDS ORDERED: LACTATED RINGERS SOLUTION 1,000 ML IV SCH (13:00)
[2022-05-17 15:27] VITALS: RESP 20
[2022-05-17 17:56] VITALS: BP 130/70; PULSE 70; TEMP 98
== END 2022-05-17 17:57 | disposition home or self-care (01) ==
LOC: JASU-SURG 04:03
PROVIDERS: ATTEND Urology
PROC: 0TBB8ZZ Excision of Bladder, Via Natural or Artificial Opening Endoscopic (ICD-10-PCS; principal; 2022-05-17 11:00)
DX: D30.3 Benign neoplasm of bladder (principal); N30.20 Other chronic cystitis without hematuria
CPT/HCPCS: 82962; 87086; 88108; 88307-TC; 94760

== ENCOUNTER 2023-08-30 04:10 | Day surgery (SDC) | payer OTHER, BC ==
[2023-08-25 09:41] VITALS: BMI 27.3
[2023-08-30] MEDS ORDERED: MIDAZOLAM HCL 2 MG/2 ML SINGLE DOSE VIAL ONE ×2 (12:32→14:20)
[2023-08-30] MEDS ORDERED: PROPOFOL 20 ML ONE (14:25)
[2023-08-30] MEDS: ceFAZolin SODIUM 1 GM VIAL IVPB ONE (14:27)
[2023-08-30] MEDS ORDERED: GEMCITABINE HCL 1 GM/50 ML DISP.SYRIN (OR USE ONLY) IS SCH (14:45)
[2023-08-30] MEDS ORDERED: LACTATED RINGERS SOLUTION 1,000 ML IV SCH (15:15)
[2023-08-30 17:08] VITALS: TEMP 97
[2023-08-30 20:00] VITALS: BP 98/62; PULSE 65; RESP 20
== END 2023-08-30 18:50 | disposition home or self-care (01) ==
LOC: JASU-SURG 04:10
PROVIDERS: ATTEND Urology
PROC: 0TBB8ZZ Excision of Bladder, Via Natural or Artificial Opening Endoscopic (ICD-10-PCS; principal; 2023-08-30 12:30)
DX: C67.8 Malignant neoplasm of overlapping sites of bladder (principal)
CPT/HCPCS: 82962; 88108; 88305-TC; 88307-TC; 94760

== ENCOUNTER 2023-12-20 04:19 | Day surgery (SDC) | payer OTHER, BC ==
[2023-12-15 15:13] VITALS: BMI 29.2
[2023-12-20] MEDS ORDERED: GEMCITABINE HCL 1 GM/50 ML DISP.SYRIN (OR USE ONLY) IS ONE ×2 (14:00)
[2023-12-20] MEDS ORDERED: MIDAZOLAM HCL 2 MG/2 ML SINGLE DOSE VIAL ONE (15:26)
[2023-12-20] MEDS ORDERED: PHENYLEPHRINE HCL 10 MG/1 ML SINGLE DOSE VIAL ONE (15:28)
[2023-12-20] MEDS: ceFAZolin SODIUM 1 GM VIAL IVPB ONE (15:37)
[2023-12-20] MEDS ORDERED: ONDANSETRON 4 MG/2 ML VIAL IVPUSH PRN (15:44)
[2023-12-20] MEDS ORDERED: ceFAZolin SODIUM 1 GM VIAL ONE (15:51)
[2023-12-20] MEDS ORDERED: ONDANSETRON 4 MG/2 ML VIAL ONE (15:51)
[2023-12-20] MEDS: LACTATED RINGERS SOLUTION 1,000 ML IV SCH (16:15)
[2023-12-20 19:25] VITALS: BP 116/59; PULSE 62; RESP 16; TEMP 97.5
== END 2023-12-20 19:35 | disposition home or self-care (01) ==
LOC: JASU-SURG 04:19
PROVIDERS: ATTEND Urology
PROC: 0TBB8ZX Excision of Bladder, Via Natural or Artificial Opening Endoscopic, Diagnostic (ICD-10-PCS; principal; 2023-12-20 14:00)
DX: D09.0 Carcinoma in situ of bladder (principal); I10 Essential (primary) hypertension; Z86.73 Personal history of transient ischemic attack (TIA), and cerebral infarction without residual deficits; K21.9 Gastro-esophageal reflux disease without esophagitis
CPT/HCPCS: 82962; 88307-TC; 94760

== ENCOUNTER 2024-01-05 11:55 | Inpatient (IN) | payer OTHER, BC ==
[2024-01-05 13:13] LABS: EPI CELLS 11 /uL (0-25.1); HYALINE CASTS 1 /uL (0-3.1); PH,URINE 5.5 (5.0-8.0); URINE APPEARANCE CLOUDY; URINE BACTERIA 483 /uL (0-1359); URINE BILIRUBIN NEGATIVE (NEGATIVE); URINE COLOR YELLOW; URINE GLUCOSE (UA) NEGATIVE (NEGATIVE); URINE KETONE NEGATIVE (NEGATIVE); URINE LEUK ESTERASE 3+ (NEGATIVE); URINE NITRITE NEGATIVE (NEGATIVE); URINE PROTEIN 2+ (NEGATIVE); URINE UROBILINOGEN 0.2 mg/dL (0.2-1.0); URINE WBC 909 /uL (0-25.8)
[2024-01-05 13:16] LABS: BASO % 1.1 % (0-2.0); EOS % 1.9 % (0-4.5); HEMOGLOBIN 11.8 GM/dL (10.7-15.3); LYMPH % 20.6 % (8-40); MCH 29.2 pg (25.7-33.7); MCHC 33.6 g/dl (32.0-36.0); MEAN CELL VOLUME 86.7 fl (80-96); MEAN PLT VOLUME 7.7 fl (7.5-11.1); MONO % 8.2 % (3.8-10.2); NEUT % 68.2 % (42.8-82.8); PLATELET COUNT 424 10^3/uL (134-434); RBC 4.04 M/mm3 (3.60-5.2); RDW 14.4 % (11.6-15.6); WHITE BLOOD COUNT 6.6 K/mm3 (4.0-10.0)
[2024-01-05 13:19] LABS: URINE RBC 19.8 /uL (0-23.9)
[2024-01-05 13:22] LABS: INR 1.04 (0.83-1.09); PROTHROMBIN TIME (PATIENT) 11.9 SEC (9.7-13.0)
[2024-01-05 13:24] LABS: ACTIVATED PTT 27.5 SECONDS (25.2-36.5)
[2024-01-05] MEDS ORDERED: ONDANSETRON 4 MG/2 ML VIAL ONE (13:32)
[2024-01-05] MEDS: ONDANSETRON 4 MG/2 ML VIAL IVPB ONE (13:40)
[2024-01-05 13:54] LABS: POTASSIUM 4.4 mmol/L (3.5-5.1)
[2024-01-05 14:00] LABS: ALBUMIN 3.2 g/dl (3.4-5.0); BLOOD UREA NITROGEN 74.7 mg/dL (7-18)
[2024-01-05 14:03] LABS: CREATININE 6.3 mg/dL (0.55-1.3)
[2024-01-05 14:06] LABS: TOT PROT 8.5 g/dl (6.4-8.2)
[2024-01-05 14:18] LABS: MAGNESIUM 1.8 mg/dL (1.8-2.4)
[2024-01-05] MEDS ORDERED: CEFTRIAXONE 1 GM/50 ML BAG ONE (14:22)
[2024-01-05] MEDS: CEFTRIAXONE 1,000 MG in DEXTROSE 5%-WATER - 50 ML IVPB ONE (14:45)
[2024-01-05 15:23] LABS: BILIRUBIN,TOTAL 0.4 mg/dL (0.2-1)
[2024-01-05] MEDS: SODIUM CHLORIDE 1,000 ML IV SCH (16:28)
[2024-01-05 17:01] LABS: POTASSIUM 4.4 mmol/L (3.5-5.1)
[2024-01-05 17:03] LABS: CALCIUM 9.9 mg/dL (8.5-10.1)
[2024-01-05 17:04] LABS: ALBUMIN 3.2 g/dl (3.4-5.0); BLOOD UREA NITROGEN 83.5 mg/dL (7-18)
[2024-01-05 17:08] LABS: BILIRUBIN,TOTAL 0.4 mg/dL (0.2-1); TOT PROT 8.1 g/dl (6.4-8.2)
[2024-01-05] MEDS: HEPARIN NA (PORCINE) 5,000 UNITS/ML 1ML VIAL SQ SCH (21:44)
[2024-01-06 09:27] LABS: BASO % 2.7 % (0-2.0); EOS % 2.6 % (0-4.5); HEMATOCRIT 30.3 % (32.4-45.2); HEMOGLOBIN 10.1 GM/dL (10.7-15.3); LYMPH % 30.3 % (8-40); MCH 29.4 pg (25.7-33.7); MCHC 33.2 g/dl (32.0-36.0); MEAN CELL VOLUME 88.7 fl (80-96); MEAN PLT VOLUME 7.6 fl (7.5-11.1); MONO % 9.1 % (3.8-10.2); NEUT % 55.3 % (42.8-82.8); PLATELET COUNT 367 10^3/uL (134-434); RBC 3.42 M/mm3 (3.60-5.2); RDW 14.4 % (11.6-15.6); WHITE BLOOD COUNT 5.8 K/mm3 (4.0-10.0)
[2024-01-06] MEDS: amLODIPine BESYLATE 10 MG TABLET (FP) PO SCH (10:50)
[2024-01-06 12:29] LABS: CALCIUM 8.6 mg/dL (8.5-10.1)
[2024-01-06 12:30] LABS: ALBUMIN 2.8 g/dl (3.4-5.0); BLOOD UREA NITROGEN 73.8 mg/dL (7-18)
[2024-01-06 12:33] LABS: CREATININE 5.4 mg/dL (0.55-1.3)
[2024-01-06 12:35] LABS: BILIRUBIN,TOTAL 0.8 mg/dL (0.2-1); TOT PROT 7.1 g/dl (6.4-8.2)
[2024-01-07 08:59] LABS: BASO % 3.6 % (0-2.0); EOS % 3.8 % (0-4.5); HEMATOCRIT 28.5 % (32.4-45.2); HEMOGLOBIN 9.6 GM/dL (10.7-15.3); LYMPH % 28.4 % (8-40); MCH 29.2 pg (25.7-33.7); MCHC 33.5 g/dl (32.0-36.0); MEAN CELL VOLUME 87.2 fl (80-96); MEAN PLT VOLUME 7.8 fl (7.5-11.1); MONO % 10.1 % (3.8-10.2); NEUT % 54.1 % (42.8-82.8); PLATELET COUNT 378 10^3/uL (134-434); RBC 3.27 M/mm3 (3.60-5.2); RDW 14.3 % (11.6-15.6); WHITE BLOOD COUNT 5.4 K/mm3 (4.0-10.0)
[2024-01-07 09:25] LABS: POTASSIUM 4.1 mmol/L (3.5-5.1)
[2024-01-07 09:35] LABS: BLOOD UREA NITROGEN 64.4 mg/dL (7-18); CALCIUM 8.7 mg/dL (8.5-10.1)
[2024-01-07 09:39] LABS: CREATININE 4.2 mg/dL (0.55-1.3)
[2024-01-07] MEDS: SODIUM CHLORIDE 0.45% 1,000 ML IV SCH (13:53)
[2024-01-07 14:12] VITALS: BMI 25.4
[2024-01-07 14:28] LABS: EPI CELLS 24 /uL (0-25.1); HYALINE CASTS 0 /uL (0-3.1); PH,URINE 6.5 (5.0-8.0); URINE APPEARANCE CLEAR; URINE BACTERIA 12 /uL (0-1359); URINE BILIRUBIN NEGATIVE (NEGATIVE); URINE COLOR YELLOW; URINE GLUCOSE (UA) NEGATIVE (NEGATIVE); URINE KETONE NEGATIVE (NEGATIVE); URINE LEUK ESTERASE 2+ (NEGATIVE); URINE NITRITE NEGATIVE (NEGATIVE); URINE PROTEIN 1+ (NEGATIVE); URINE RBC 261 /uL (0-23.9); URINE UROBILINOGEN 0.2 mg/dL (0.2-1.0); URINE WBC 132 /uL (0-25.8)
[2024-01-08 10:21] LABS: POTASSIUM 3.8 mmol/L (3.5-5.1)
[2024-01-08 10:28] LABS: ALBUMIN 2.8 g/dl (3.4-5.0); CALCIUM 8.9 mg/dL (8.5-10.1)
[2024-01-08 10:29] LABS: BLOOD UREA NITROGEN 43.9 mg/dL (7-18)
[2024-01-08 10:32] LABS: CREATININE 3.4 mg/dL (0.55-1.3)
[2024-01-08 10:33] LABS: BILIRUBIN,TOTAL 0.6 mg/dL (0.2-1)
[2024-01-08] MEDS: ONDANSETRON 4 MG/2 ML VIAL IVPUSH PRN (11:59)
[2024-01-08] MEDS: PANTOPRAZOLE 40 MG TABLET PO ONE (11:59)
[2024-01-08 15:27] VITALS: RESP 18
[2024-01-08 23:06] LABS: ANTIGLOMERULAR BASEMENT MEN.AB <0.2 units (0.0-0.9)
[2024-01-09 09:31] LABS: POTASSIUM 3.8 mmol/L (3.5-5.1)
[2024-01-09] MEDS: PANTOPRAZOLE 40 MG TABLET PO SCH (09:32)
[2024-01-09] MEDS: POLYETHYLENE GLYCOL (HEALTHYLAX) 3350 17 GM PACKET PO SCH (09:34)
[2024-01-09 09:35] LABS: CALCIUM 9.2 mg/dL (8.5-10.1)
[2024-01-09 09:38] LABS: CREATININE 2.9 mg/dL (0.55-1.3)
[2024-01-09] MEDS: SODIUM CHLORIDE 1,000 ML IV SCH (13:00)
[2024-01-09 17:09] LABS: C-ANCA <1:20 titer (Neg:<1:20)
[2024-01-10 11:38] LABS: ALBUMIN 3.3 g/dl (3.4-5.0); BLOOD UREA NITROGEN 41.9 mg/dL (7-18); CALCIUM 9.3 mg/dL (8.5-10.1)
[2024-01-10 11:41] LABS: CREATININE 2.6 mg/dL (0.55-1.3)
[2024-01-10 11:43] LABS: BILIRUBIN,TOTAL 0.5 mg/dL (0.2-1); TOT PROT 7.7 g/dl (6.4-8.2)
[2024-01-11 05:59] VITALS: BP 109/63; PULSE 77; TEMP 98.2
[2024-01-11 09:44] LABS: POTASSIUM 4.1 mmol/L (3.5-5.1)
[2024-01-11 10:04] LABS: ALBUMIN 3.2 g/dl (3.4-5.0); BLOOD UREA NITROGEN 41.7 mg/dL (7-18); CALCIUM 9.1 mg/dL (8.5-10.1)
[2024-01-11 10:07] LABS: CREATININE 2.3 mg/dL (0.55-1.3)
[2024-01-11 10:08] LABS: BILIRUBIN,TOTAL 0.6 mg/dL (0.2-1)
[2024-01-11 10:11] LABS: TOT PROT 7.2 g/dl (6.4-8.2)
== END 2024-01-11 12:55 | disposition home or self-care (01) | DRG 684 ==
LOC: JER 11:55 → JERBED 16:40 → J8W 19:17
PROVIDERS: ADMIT Family Medicine; ATTEND Family Medicine
DX: N17.9 Acute kidney failure, unspecified (principal); T45.1X5A Adverse effect of antineoplastic and immunosuppressive drugs, initial encounter; E78.5 Hyperlipidemia, unspecified; E11.9 Type 2 diabetes mellitus without complications; I25.2 Old myocardial infarction; C67.9 Malignant neoplasm of bladder, unspecified; R10.32 Left lower quadrant pain; I11.0 Hypertensive heart disease with heart failure; I50.9 Heart failure, unspecified; K76.0 Fatty (change of) liver, not elsewhere classified; Z86.73 Personal history of transient ischemic attack (TIA), and cerebral infarction without residual deficits
CPT/HCPCS: 0241U-QW; 36415; 71046-TC-FY; 76705-TC; 76775-TC; 76856-TC; 80048; 80053; 81003; 82436; 82570; 82962; 83036; 83516; 83520; 83735; 83880; 84100; 84133; 84155; 84165; 84300; 84484; 85025; 85610; 85730; 86038; 86225; 86256; 87086; 93005; 93010; 99285-25; J1644